=== PATIENT | female | born 1965 | race Caucasian/White ===

== ENCOUNTER → 2023-02-18 12:09 | Outpatient (CLI) | payer OTHER, SELFPAY ==
--- NOTE | 2023-02-18 | DI.MRI.S_ITS ---
PROCEDURE: MR KNEE RT WO CON INDICATIONS: RT knee pain TECHNIQUE: Noncontrast sagittal PD fast spin echo and T2 fast spin echo with fat saturation, sagittal 3-D FLASH with fat saturation; coronal T1 spin echo and PD fast spin echo with fat saturation, and axial PD fast spin echo with fat saturation through the knee. COMPARISON: None. FINDINGS: Image quality: Excellent. Menisci: Oblique tear involving posterior horn of medial meniscus extending to inferior articulating surface is seen. Oblique tear involving anterior horn of lateral meniscus is also seen extending to both superior and inferior articulating surfaces. The meniscal root ligaments appear intact. Cruciate ligaments: The anterior cruciate ligament is thickened with intrasubstance T2 hyperintense signal. The posterior cruciate ligament is intact. Medial structures: The medial collateral ligament appears intact. The posterior oblique ligament, semimembranosus tendon insertions, oblique popliteal ligament, and meniscocapsular junction appear intact. Visualized portions of the pes anserinus tendons appear normal. No abnormal bursal fluid. Lateral structures: The lateral collateral ligament, long and short heads of the biceps femoris tendon appear intact. The popliteus tendon appears normal; the popliteofibular ligament appears intact. Iliotibial band appears normal. Anterior structures: Small pockets of fluid are noted within anterior aspect of right knee adjacent to anterior aspect of distal patellar tendon near its tibial insertion. The quadriceps and patellar tendons appear intact. Patellar alignment is normal. No femoral trochlear dysplasia or ventral trochlear prominence. No edema in the infrapatellar fat pad. Bones and cartilage: No bone marrow contusions or fractures. 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 Nonspecific intraosseous cyst formation in proximal tibia near base of tibial spine is noted. Joint space: There is small knee joint fluid. No Self's cyst. Normal appearing synovial plicae are incidentally noted. IMPRESSION: 1. Oblique tear involving posterior horn of medial meniscus extending to inferior articulating surface. Complex tear involving anterior horn of lateral meniscus extending to both superior and inferior articulating surfaces. 2. Degenerative changes and low-grade intrasubstance partial-thickness tear involving anterior cruciate ligament. No ACL rupture. The PCL is intact. 3. Mild subcutaneous soft tissue edema along anterior aspect of patella and patella tendon with small pockets of fluid. No definite fluid distension of prepatellar bursa is seen. Quadriceps tendon and patellar tendon are intact. 4. 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 No fracture or dislocation. Small joint effusion. No gross loose bodies. Dictated by: Jose Hill M.D. on 02/18/2023 at 16:24 Approved by: Jose Hill M.D. on 02/18/2023 at 16:33
== END ==
PROVIDERS: PCP Nurse Practitioner; Referring Provider Orthopaedic Surgery Foot and Ankle Surgery; Visit Provider Orthopaedic Surgery Foot and Ankle Surgery
DX: S83.411A Sprain of medial collateral ligament of right knee, initial encounter (principal); S83.241A Other tear of medial meniscus, current injury, right knee, initial encounter; S83.271A Complex tear of lateral meniscus, current injury, right knee, initial encounter; S83.511A Sprain of anterior cruciate ligament of right knee, initial encounter; M17.11 Unilateral primary osteoarthritis, right knee; M94.261 Chondromalacia, right knee; M25.461 Effusion, right knee
CPT/HCPCS: 73721

== ENCOUNTER → 2023-10-20 13:02 | Outpatient (CLI) | payer OTHER, SELFPAY ==
--- NOTE | 2023-10-20 13:04 | DI.MRI.S_ITS ---
PROCEDURE: MR ANKLE RT WO CON INDICATIONS: Sprain of deltoid ligament of right ankle, TECHNIQUE: Noncontrast sagittal T1 spin echo and T2 fast spin echo with fat saturation, axial proton density fast spin echo and T2 fast spin echo with fat saturation, coronal T1 spin echo and T2 fast spin echo with fat saturation through the ankle/hindfoot. COMPARISON: [facility], [place], XR ANKLE 3 VIEWS WEIGHT BEARING RIGHT, 02/03/2023, 11:43. FINDINGS: Image quality: Limited evaluation of the lateral ankle given metallic artifact. Tendons: The flexor tendons are unremarkable. Somewhat limited evaluation of the peroneal tendon. Within this limitation, the peroneal tendon is grossly unremarkable in the visualized portion. The extensor, in the distal Achilles tendon are unremarkable. Mild subcutaneous edema posterior to the distal Achilles tendon. Trace retrocalcaneal bursitis. The Ligaments: The anterior and posterior tibiofibular ligament are intact. The anterior and posterior talofibular ligament are grossly intact. The visualized portion of the calcaneofibular ligament is intact. Prior sprain of the deep portion of the deltoid ligament. Sinus tarsi: No fibrosis Plantar fascia: Mild thickening of the central cord at the level of the calcaneus neck, raising concern for plantar fasciitis. Muscles: Normal signal Bones: Plate and screw fixation of the distal fibula, creating artifacts and limits evaluation. Otherwise no narrowing team. No acute fracture. No osteochondral lesion in the talus dome. Mild degenerative changes of 1st tarsometatarsal joint with subchondral marrow edema in the medial cuneiform. Other findings: No significant tendon tear or posterior subtalar effusion. Mild subcutaneous edema of the medial ankle. IMPRESSION: 1. Plate and screw fixation of the distal fibula, limiting evaluation. 2. Prior sprain of the deep portion of the deltoid ligament. 3. Findings concerning for plantar fasciitis at the level of the calcaneus neck. 4. Mild degenerative change of 1st tarsometatarsal joint. Dictated by: Isatu Vidal M.D. on 10/20/2023 at 16:26 Approved by: Isatu Vidal M.D. on 10/20/2023 at 16:33
== END ==
LOC: MRI 13:03
PROVIDERS: PCP Nurse Practitioner Family; Referring Provider Orthopaedic Surgery Foot and Ankle Surgery; Visit Provider Orthopaedic Surgery Foot and Ankle Surgery
DX: M25.871 Other specified joint disorders, right ankle and foot (principal); Z98.890 Other specified postprocedural states; Z87.828 Personal history of other (healed) physical injury and trauma
CPT/HCPCS: 73721